=== PATIENT | male | born 1970 | race Caucasian/White ===

== ENCOUNTER 2023-03-10 17:31 | Inpatient (IN) | payer MEDICAID ==
[~2023-03-10] VITALS: Ht 170.2 cm; Wt 81.4 kg
[~2023-03-10 17:31] MED LIST: AMLO-258 PO; HYDR25TA PO; OMEP20TA2 PO; SIMV-46 PO
[2023-03-10 18:16] LABS: GLUCOMETER DEV NAME(LOC) ERT.5; GLUCOSE,POINT OF CARE 86 MG/DL (70-110)
[2023-03-10] MEDS ORDERED: MetroNIDAZOLE 500 MG/NACL 100 ML IV ONE (22:15)
[2023-03-10] MEDS ORDERED: VANCOMYCIN HCL 1.25 GM in DEXTROSE 5%-WATER 250 ML IV ONE (22:15)
[2023-03-10] MEDS ORDERED: SODIUM CHLORIDE 0.9% 1,000 ML IV ONE (22:15)
[2023-03-10] MEDS: ACETAMINOPHEN 500 MG TABLET PO ONE ×2 (22:15→23:03)
[2023-03-10] MEDS: KETOROLAC TROMETHAMINE 30 MG/ML VIAL IVP ONE ×2 (22:15→23:02)
[2023-03-10] MEDS ORDERED: 0.9% SODIUM CHLORIDE 10 ML SYRINGE IVP PRN (22:15)
[2023-03-10 23:07] LABS: BASOPHILS % (AUTO) 0.9 % (0.0-2.0); EOSINOPHILS % (AUTO) 6.6 % (1.0-6.0); HEMOGLOBIN 13.6 g/dL (13.5-17.5); LYMPHOCYTES # (AUTO) 2.5 K/uL (1.0-4.8); LYMPHOCYTES % (AUTO) 30.6 % (22.0-44.0); MEAN CORPUSCULAR HEMOGLOBIN 28.9 pg (26.0-34.0); MEAN CORPUSCULAR HGB CONC 33.3 G/dL (31.0-37.0); MEAN CORPUSCULAR VOLUME 87 fL (80-100); MONOCYTES # (AUTO) 0.8 K/uL (0.1-1.0); MONOCYTES % (AUTO) 9.3 % (2.0-9.0); NEUTROPHILS # (AUTO) 4.4 K/uL (1.8-7.7); NEUTROPHILS % (AUTO) 52.6 % (40.0-70.0); PLATELET COUNT (AUTO) 294 K/uL (150-450); RED BLOOD CELL COUNT(AUTO) 4.73 MIL/uL (4.50-5.90); RED CELL DISTRIBUTION WIDTH 14.1 % (11.5-14.5)
[2023-03-10 23:21] LABS: ANION GAP 9 mmol/L (8-16); CARBON DIOXIDE 27 mmol/L (22-29); CHLORIDE 103 mmol/L (98-107); GLOMERULAR FILTR. RATE CALC > 60 mL/min (>60); GLUCOSE,RANDOM 103 mg/dL (70-110); SODIUM SERUM 139 mmol/L (136-145)
[2023-03-10 23:26] LABS: LACTIC ACID 1.3 mmol/L (0.4-2.0)
[2023-03-10 23:27] LABS: B-TYPE NATRIURETIC PEPTIDE 26 pg/mL (0-100)
[2023-03-10 23:29] LABS: ALANINE AMINOTRANSFERASE 19 U/L (12-78); ALBUMIN 3.2 g/dL (3.4-5.0); ALKALINE PHOSPHATASE 99 U/L (46-116); ASPARTATE AMINOTRANSFERASE 15 U/L (15-37); BILIRUBIN,TOTAL 0.2 mg/dL (0.1-1.0); CREATINE KINASE, TOTAL ONLY 92 U/L (39-308); TOTAL PROTEIN, SERUM 7.3 g/dL (6.4-8.2)
[2023-03-10] MEDS ORDERED: OxyCODONE HCL 5 MG IR TABLET PO ONE (23:30)
[2023-03-11] MEDS ORDERED: ONDANSETRON HCL 4 MG/2 ML VIAL IVP PRN ×2 (01:15→15:45)
[2023-03-11] MEDS ORDERED: ACETAMINOPHEN 325 MG TABLET PO PRN ×2 (01:15→15:45)
[2023-03-11] MEDS ORDERED: 0.9% SODIUM CHLORIDE 10 ML SYRINGE IVP PRN (01:15)
[2023-03-11 08:51] VITALS: BP 145/90; PULSE 65; RESP 18; TEMP 97.7
[2023-03-11] MEDS ORDERED: INSULIN LISPRO 100 UNITS/ML SQ PRN (15:15)
[2023-03-11] MEDS ORDERED: DEXTROSE 50%-WATER 25 GM/50 ML SYRINGE IVP PRN (15:15)
[2023-03-11] MEDS ORDERED: ALBUTEROL SULFATE 2.5 MG/0.5 ML NEB SOLUTION NEB PRN (15:45)
[2023-03-11] MEDS ORDERED: IPRATROPIUM BROMIDE 0.5 MG/2.5 ML NEB SOLUTION NEB PRN (15:45)
[2023-03-11] MEDS ORDERED: MAGNESIUM HYDROXIDE SUSPENSION 30 ML UDCUP PO PRN (15:45)
[2023-03-11] MEDS ORDERED: BISACODYL 10 MG RECTAL RECTAL SUPPOSITORY PR PRN (15:45)
[2023-03-11] MEDS ORDERED: ZOLPIDEM TARTRATE 5 MG TABLET PO PRN (15:45)
[2023-03-11] MEDS: HEPARIN SODIUM,PORCINE 5,000 UNITS/ML VIAL SQ SCH ×2 (16:00→23:56)
[2023-03-11] MEDS: OxyCODONE HCL/ACETAMINOPHEN 10-325 MG TABLET PO PRN (16:02)
[2023-03-11 20:00] VITALS: BP 146/93; PULSE 68; RESP 20; TEMP 97.5
[2023-03-11 20:01] LABS: GLUCOMETER DEV NAME(LOC) 6N.1; GLUCOSE,POINT OF CARE 106 MG/DL (70-110)
[2023-03-11] MEDS: DOCUSATE SODIUM 100 MG CAPSULE PO SCH (20:57)
[2023-03-11] MEDS: HYDROCODONE/ACETAMINOPHEN 5-325 MG TABLET PO PRN (21:01)
[2023-03-11 22:27] LABS: GLUCOMETER DEV NAME(LOC) 4E.2; GLUCOSE,POINT OF CARE 115 MG/DL (70-110)
[2023-03-12] MEDS: HYDROCODONE/ACETAMINOPHEN 5-325 MG TABLET PO PRN ×2 (03:02→20:10)
[2023-03-12 03:04] VITALS: BP 155/80; PULSE 58; RESP 20; TEMP 97.5
[2023-03-12 06:40] LABS: BASOPHILS % (AUTO) 1.2 % (0.0-2.0); EOSINOPHILS % (AUTO) 8.3 % (1.0-6.0); HEMATOCRIT 40.5 % (41-53); HEMOGLOBIN 13.1 g/dL (13.5-17.5); LYMPHOCYTES # (AUTO) 1.9 K/uL (1.0-4.8); LYMPHOCYTES % (AUTO) 33.1 % (22.0-44.0); MEAN CORPUSCULAR HEMOGLOBIN 28.3 pg (26.0-34.0); MEAN CORPUSCULAR HGB CONC 32.5 G/dL (31.0-37.0); MEAN CORPUSCULAR VOLUME 87 fL (80-100); MONOCYTES # (AUTO) 0.7 K/uL (0.1-1.0); MONOCYTES % (AUTO) 11.5 % (2.0-9.0); NEUTROPHILS # (AUTO) 2.6 K/uL (1.8-7.7); NEUTROPHILS % (AUTO) 45.9 % (40.0-70.0); PLATELET COUNT (AUTO) 255 K/uL (150-450); RED BLOOD CELL COUNT(AUTO) 4.64 MIL/uL (4.50-5.90); RED CELL DISTRIBUTION WIDTH 14.5 % (11.5-14.5)
[2023-03-12 07:04] LABS: ALANINE AMINOTRANSFERASE 15 U/L (12-78); ALBUMIN 2.7 g/dL (3.4-5.0); ALKALINE PHOSPHATASE 82 U/L (46-116); ANION GAP 8 mmol/L (8-16); ASPARTATE AMINOTRANSFERASE 12 U/L (15-37); BILIRUBIN,TOTAL 0.2 mg/dL (0.1-1.0); CALCIUM, TOTAL 8.8 mg/dL (8.8-10.5); CARBON DIOXIDE 26 mmol/L (22-29); CHLORIDE 104 mmol/L (98-107); CREATININE 0.87 mg/dL (0.60-1.30); GLOMERULAR FILTR. RATE CALC > 60 mL/min (>60); GLUCOSE,RANDOM 96 mg/dL (70-110); POTASSIUM 4.6 mmol/L (3.5-5.1); SODIUM SERUM 138 mmol/L (136-145); TOTAL PROTEIN, SERUM 6.4 g/dL (6.4-8.2)
[2023-03-12] MEDS: HEPARIN SODIUM,PORCINE 5,000 UNITS/ML VIAL SQ SCH ×2 (08:00→16:00)
[2023-03-12 08:15] VITALS: BP 172/86; PULSE 60; RESP 18; TEMP 98
[2023-03-12] MEDS: DOCUSATE SODIUM 100 MG CAPSULE PO SCH ×2 (08:37→20:10)
[2023-03-12] MEDS: AmLODIPine BESYLATE 10 MG TABLET PO SCH (08:37)
[2023-03-12] MEDS: PANTOPRAZOLE SODIUM 40 MG/VIAL IVP SCH (08:38)
[2023-03-12] MEDS: OxyCODONE HCL/ACETAMINOPHEN 10-325 MG TABLET PO PRN ×2 (08:38→15:42)
[2023-03-12] MEDS ORDERED: VANCOMYCIN HCL 1 GM/VIAL ONE (11:41)
[2023-03-12] MEDS ORDERED: BUPIVACAINE HCL/PF 0.5% 10 ML VIAL ONE (11:41)
[2023-03-12] MEDS ORDERED: LIDOCAINE/PF 1% 30 ML VIAL ONE (11:41)
[2023-03-12] MEDS ORDERED: SODIUM CL IRRIG SOLN BAG 3,000 ML IRRIG ONE (11:41)
[2023-03-12 11:57] LABS: GLUCOMETER DEV NAME(LOC) 4E.2; GLUCOSE,POINT OF CARE 102 MG/DL (70-110)
[2023-03-12] MEDS ORDERED: PROPOFOL 1% ISO-OSM 1000 MG/100 ML BOTTLE IV ONE (12:00)
[2023-03-12] MEDS ORDERED: RINGERS SOLUTION,LACTATED 1,000 ML IV ONE (12:12)
[2023-03-12] MEDS ORDERED: BUPIVACAINE HCL/PF 0.5% 10 ML VIAL PERC ONE (13:08)
[2023-03-12] MEDS ORDERED: LIDOCAINE 1% 20 ML VIAL PERC ONE (13:08)
[2023-03-12] MEDS ORDERED: VANCOMYCIN HCL 1 GM/VIAL IRRIG ONE (13:19)
[2023-03-12] MEDS ORDERED: BACITRACIN 28 GM OINTMENT TP ONE ×2 (13:24→13:25)
[2023-03-12] MEDS ORDERED: MEPERIDINE-PF 25 MG/ML VIAL IVP PRN (13:30)
[2023-03-12] MEDS ORDERED: FentaNYL CITRATE PF 100 MCG/2 ML VIAL IVP PRN (13:30)
[2023-03-12] MEDS ORDERED: HYDROmorphone HCL 2 MG/ML SYRINGE IVP PRN (13:30)
[2023-03-12 15:40] VITALS: BP 146/71; PULSE 65; RESP 18; TEMP 98.5
[2023-03-12 16:51] LABS: GLUCOMETER DEV NAME(LOC) 6N.1; GLUCOSE,POINT OF CARE 123 MG/DL (70-110)
[2023-03-12 19:45] VITALS: BP 124/99; PULSE 75; RESP 20; TEMP 98.8
[2023-03-13] MEDS: HYDROCODONE/ACETAMINOPHEN 5-325 MG TABLET PO PRN ×6 (00:12→23:40)
[2023-03-13] MEDS: HEPARIN SODIUM,PORCINE 5,000 UNITS/ML VIAL SQ SCH ×4 (00:14→23:40)
[2023-03-13 04:10] VITALS: BP 131/84; PULSE 61; RESP 16; TEMP 98.4
[2023-03-13 05:35] LABS: GLUCOMETER DEV NAME(LOC) 4E.2; GLUCOSE,POINT OF CARE 131 MG/DL (70-110)
[2023-03-13 05:58] LABS: BASOPHILS % (AUTO) 1.7 % (0.0-2.0); EOSINOPHILS % (AUTO) 7.8 % (1.0-6.0); HEMOGLOBIN 13.5 g/dL (13.5-17.5); LYMPHOCYTES # (AUTO) 1.9 K/uL (1.0-4.8); LYMPHOCYTES % (AUTO) 30.6 % (22.0-44.0); MEAN CORPUSCULAR HGB CONC 33.8 G/dL (31.0-37.0); MEAN CORPUSCULAR VOLUME 86 fL (80-100); MONOCYTES # (AUTO) 0.8 K/uL (0.1-1.0); MONOCYTES % (AUTO) 12.2 % (2.0-9.0); NEUTROPHILS % (AUTO) 47.7 % (40.0-70.0); PLATELET COUNT (AUTO) 268 K/uL (150-450); RED BLOOD CELL COUNT(AUTO) 4.66 MIL/uL (4.50-5.90); RED CELL DISTRIBUTION WIDTH 14.2 % (11.5-14.5)
[2023-03-13 06:08] LABS: ANION GAP 3 mmol/L (8-16); CARBON DIOXIDE 29 mmol/L (22-29); CHLORIDE 102 mmol/L (98-107); CREATININE 0.96 mg/dL (0.60-1.30); GLOMERULAR FILTR. RATE CALC > 60 mL/min (>60); GLUCOSE,RANDOM 112 mg/dL (70-110); POTASSIUM 4.5 mmol/L (3.5-5.1); SODIUM SERUM 134 mmol/L (136-145)
[2023-03-13 07:36] LABS: GLUCOMETER DEV NAME(LOC) 6N.2B; GLUCOSE,POINT OF CARE 119 MG/DL (70-110)
[2023-03-13 07:36] LABS: GLUCOMETER DEV NAME(LOC) 6S.1B; GLUCOSE,POINT OF CARE 126 MG/DL (70-110)
[2023-03-13 07:57] VITALS: BP 128/76; PULSE 58; RESP 18; TEMP 98.7
[2023-03-13] MEDS: OXYGEN THERAPY IH SCH ×2 (08:00→20:00)
[2023-03-13] MEDS: AmLODIPine BESYLATE 10 MG TABLET PO SCH (09:07)
[2023-03-13] MEDS: DOCUSATE SODIUM 100 MG CAPSULE PO SCH ×2 (09:07→22:49)
[2023-03-13] MEDS: PANTOPRAZOLE SODIUM 40 MG/VIAL IVP SCH (09:08)
[2023-03-13 13:11] LABS: GLUCOMETER DEV NAME(LOC) 6S.1B; GLUCOSE,POINT OF CARE 145 MG/DL (70-110)
[2023-03-13] MEDS ORDERED: DOXY-354 PO (13:34)
[2023-03-13] MEDS ORDERED: OXYC-618 PO (13:34)
[2023-03-13 15:50] VITALS: BP 164/82; PULSE 89; RESP 19; TEMP 98.1
[2023-03-13 19:40] VITALS: BP 138/93; PULSE 72; RESP 20; TEMP 97.9
[2023-03-13 20:25] LABS: GLUCOMETER DEV NAME(LOC) 6N.2B; GLUCOSE,POINT OF CARE 121 MG/DL (70-110)
[2023-03-13 22:31] LABS: GLUCOMETER DEV NAME(LOC) 6S.1B; GLUCOSE,POINT OF CARE 97 MG/DL (70-110)
[2023-03-14 04:32] VITALS: BP 123/90; PULSE 64; RESP 20; TEMP 98.6
[2023-03-14] MEDS: HYDROCODONE/ACETAMINOPHEN 5-325 MG TABLET PO PRN ×2 (04:33→08:53)
[2023-03-14 07:27] VITALS: BP 130/75; PULSE 61; RESP 18; TEMP 98
[2023-03-14 07:51] LABS: GLUCOMETER DEV NAME(LOC) 6S.1B; GLUCOSE,POINT OF CARE 111 MG/DL (70-110)
[2023-03-14] MEDS: OXYGEN THERAPY IH SCH (08:00)
[2023-03-14] MEDS: AmLODIPine BESYLATE 10 MG TABLET PO SCH (08:54)
[2023-03-14] MEDS: DOCUSATE SODIUM 100 MG CAPSULE PO SCH (08:54)
[2023-03-14] MEDS: PANTOPRAZOLE SODIUM 40 MG/VIAL IVP SCH (08:55)
[2023-03-14] MEDS: HEPARIN SODIUM,PORCINE 5,000 UNITS/ML VIAL SQ SCH (08:56)
[2023-03-14 12:10] LABS: GLUCOMETER DEV NAME(LOC) 4E.2; GLUCOSE,POINT OF CARE 169 MG/DL (70-110)
[2023-03-14] MEDS: OxyCODONE HCL/ACETAMINOPHEN 10-325 MG TABLET PO PRN (13:50)
== END 2023-03-14 14:45 | disposition home or self-care (01) | DRG 951 ==
LOC: EMS 17:32 → 6S 03-11 04:00
PROVIDERS: ADMIT Hospitalist; ATTEND Hospitalist
PROC: 0HDRXZZ Extraction of Toe Nail, External Approach (ICD-10-PCS; 2023-03-12)
PROC: 0QBR0ZZ Excision of Left Toe Phalanx, Open Approach (ICD-10-PCS; principal; 2023-03-12 13:00)
DX: E11.52 Type 2 diabetes mellitus with diabetic peripheral angiopathy with gangrene (principal); E43 Unspecified severe protein-calorie malnutrition; I96 Gangrene, not elsewhere classified; R45.851 Suicidal ideations; L97.529 Non-pressure chronic ulcer of other part of left foot with unspecified severity; E11.621 Type 2 diabetes mellitus with foot ulcer; L84 Corns and callosities; Z91.199 Patient's noncompliance with other medical treatment and regimen due to unspecified reason; L57.0 Actinic keratosis; F12.90 Cannabis use, unspecified, uncomplicated; W18.39XA Other fall on same level, initial encounter; K21.9 Gastro-esophageal reflux disease without esophagitis; I10 Essential (primary) hypertension; E78.00 Pure hypercholesterolemia, unspecified; F31.9 Bipolar disorder, unspecified; L60.2 Onychogryphosis; F17.210 Nicotine dependence, cigarettes, uncomplicated; Z88.0 Allergy status to penicillin; Z89.421 Acquired absence of other right toe(s); Z89.422 Acquired absence of other left toe(s); Z79.899 Other long term (current) drug therapy; Z68.28 Body mass index [BMI] 28.0-28.9, adult; Y93.89 Activity, other specified; Y92.89 Other specified places as the place of occurrence of the external cause; Y99.8 Other external cause status
CPT/HCPCS: 80048; 80053; 82550; 82962; 83605; 83880; 84145; 84484; 85025; 87040; 87070; 87205; 99285; C9113; G0480; J0690; J1644; J1885; J2405; J2704; J3370; J3490; J7030; J7060; J7120